=== PATIENT | male | born 1995 | race Caucasian/White ===

== ENCOUNTER 2024-08-24 07:05 | Outpatient (CLI) | payer MEDICAID ==
[~2024-08-24] VITALS: Ht 175.3 cm; Wt 95.3 kg
[2024-08-24] MEDS: albuterol 2.5 MG/3 ML nebule NEB ONE (08:08)
[2024-08-24 08:11] VITALS: PULSE 77; RESP 20; O2SAT 98
[2024-08-24 08:47] VITALS: PULSE 82; RESP 32
== END 2024-08-24 23:59 | disposition home or self-care (01) ==
LOC: RT 07:05
PROVIDERS: ATTEND Family Medicine
DX: R06.02 Shortness of breath (principal)
CPT/HCPCS: 94060; 94729; 94760

== ENCOUNTER 2025-02-08 08:09 | Outpatient (CLI) | payer MEDICAID ==
[2025-02-08] VITALS (21 sets, daily range): BP systolic 83–182; BP diastolic 40–125; PULSE 93–120
== END 2025-02-08 23:59 | disposition home or self-care (01) ==
LOC: CARD DIAG 08:09
PROVIDERS: ATTEND Internal Medicine Interventional Cardiology
DX: R55 Syncope and collapse (principal); I48.0 Paroxysmal atrial fibrillation; F41.0 Panic disorder [episodic paroxysmal anxiety]
CPT/HCPCS: 93660